=== PATIENT | female | born 1995 | race Two or more races ===

== ENCOUNTER 2020-05-10 16:03 | Emergency (ER) | payer MEDICAID ==
[~2020-05-10] VITALS: Ht 162.6 cm; Wt 77.1 kg
--- NOTE | 2020-05-10 16:20 | NUR ---
Pt report about a week she got bite by a spider in her Lt leg and with the day Patient noted her left leg redness and progressively swollen.
[2020-05-10] MEDS ORDERED: cefTRIAXone 1 GM in NS 55 ML IVPB ONE (16:30)
[2020-05-10 16:50] VITALS: BP 106/76
[2020-05-10 16:56] LABS: ANION GAP 12 mmol/L (5-15); BLOOD UREA NITROGEN 8 mg/dL (7-18); CALCIUM 9.3 MG/DL (8.5-10.1); CARBON DIOXIDE 22 MMOL/L (21-32); CHLORIDE 105 MMOL/L (98-107); CREATININE 0.5 MG/DL (0.55-1.30); POTASSIUM 4.4 MMOL/L (3.5-5.1); SODIUM 138 MMOL/L (136-145)
[2020-05-10 17:01] LABS: ALANINE AMINOTRANSFERASE 31 U/L (12-78); ALBUMIN 2.1 G/DL (3.4-5.0); ALBUMIN/GLOBULIN RATIO 0.4 (1.0-2.7); ALKALINE PHOSPHATASE 260 U/L (46-116); ASPARTATE AMINO TRANSFERASE 31 U/L (15-37); BILIRUBIN,TOTAL 0.3 MG/DL (0.2-1.0)
--- NOTE | 2020-05-10 17:03 | Diagnostic Imaging Report ---
EXAM: XR Left Tibia and Fibula, 2 Views CLINICAL HISTORY: PAIN TECHNIQUE: Frontal and lateral views of the left tibia and fibula. COMPARISON: None FINDINGS: Bones/joints: No displaced fracture or dislocation identified. Joint space is maintained. No bony lesion. Soft tissues: Diffuse prominent soft tissue swelling. IMPRESSION: 1. No displaced fracture or dislocation identified. 2. Diffuse prominent soft tissue swelling. Cellulitis is not excluded.
[2020-05-10 17:16] LABS: BASOPHILS % (AUTO) 1.2 % (0.0-2.0); EOSINOPHILS % (AUTO) 1.9 % (0.0-3.0); HEMATOCRIT 34.2 % (37.0-47.0); HEMOGLOBIN 10.7 G/DL (12.0-16.0); MEAN CORPUSCULAR VOLUME 79 FL (80-99); MONOCYTES % (AUTO) 5.2 % (1.0-10.0); NEUTROPHILS % (AUTO) 69.7 % (45.0-75.0); PLATELET COUNT 474 K/UL (150-450); RED BLOOD COUNT 4.31 M/UL (4.20-5.40); RED CELL DISTRIBUTION WIDTH 13.8 % (11.6-14.8); WHITE BLOOD COUNT 9.5 K/UL (4.8-10.8)
[2020-05-10 17:19] LABS: APPEARANCE,URINE SLIGHTLY CLOUDY; BILIRUBIN, URINE NEGATIVE (NEGATIVE); COLOR,URINE PALE YELLOW; GLUCOSE, URINE (UA) NEGATIVE (NEGATIVE); KETONES,URINE 1+ (NEGATIVE); LEUKOCYTE ESTERASE ,URINE 3+ (NEGATIVE); NITRITE,URINE NEGATIVE (NEGATIVE); PH,URINE 6.5 (4.5-8.0); PROTEIN,URINE 1+ (NEGATIVE); UROBILINOGEN,URINE 1 MG/DL (0.0-1.0)
--- NOTE | 2020-05-10 17:32 | Emergency Room Report ---
History of Present Illness General Chief Complaint: Skin Rash/Abscess Source: Patient Present Illness HPI 24-year-old female with no signal past medical history here complaining of left lower leg pain x3 days after a spider bite. Patient reports that she was outside and she felt a bite through her pants. Patient was able to see the spider. Denies any fever and chills. Obvious swelling noted left lower ext remity warm to touch. Patient is neurovascularly intact. Has full range of motion of the affected side. Rates the pain 7 out of 10 without radiation. Denies tingling or numbness. Has not taken medication for symptom relief. Patient reports her last menstrual period was April 14, 2020 however does not know if she is or not. Is up-to-date with tetanus shot. Patient also mentioned that her last menstrual period was April 14, 2020 however she might be . Denies any abdominal pain, nausea vomiting, vaginal bleeding or spotting. 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 COVID-19 Screening: Negative COVID-19 COVID-19 Testing Source: [employer] Patient History Past Medical History: see triage record Past Surgical History: none Pertinent Family History: none Last Menstrual Period: 04/14/20 Now: No Immunizations: UTD Reviewed Nursing Documentation: PMH: Agreed; PSxH: Agreed Nursing Documentation-PMH Past Medical History: No Stated History Review of Systems All Other Systems: negative except mentioned in HPI Physical Exam Vital Signs Date Time Temp Pulse Resp B/P (MAP) Pulse Ox O2 Delivery O2 Flow Rate FiO2 05/10/20 16:10 98.1 110 16 103/52 (69) 96 Room Air Sp02 EP Interpretation: reviewed, normal General Appearance: no apparent distress, alert, GCS 15, non-toxic Head: normocephalic, atraumatic Eyes: bilateral eye normal inspection, bilateral eye PERRL ENT: no angioedema Neck: full range of motion, supple Respiratory: no rhonchi, no retraction, no accessory muscle use Cardiovascular #2: 2+ dorsalis pedis (R), 2+ dorsalis pedis (L) Gastrointestinal: soft Rectal: deferred Musculoskeletal: back normal, no calf tenderness, swelling - left tib fib and foot with infected wounds Neurologic: alert, motor strength/tone normal, oriented x3, sensory intact, responsive, speech normal Psychiatric: judgement/insight normal, memory normal, mood/affect normal, no suicidal/homicidal ideation Skin: other - infecterd wounds left lower leg, no ulceration , appears to be trackmarks Lymphatic: no adenopathy Medical Decision Making PA Attestation All diagnosis and treatment plans were discussed and reviewed by my supervising physician Dr. Escobar Diagnostic Impression: Primary Impression: Cellulitis, leg Additional Impression: confirmed by positive urine test ER Course 24-year-old female with no signal past medical history here complaining of left lower leg pain x3 days after a spider bite. Patient reports that she was outside and she felt a bite through her pants. Patient was able to see the spider. Denies any fever and chills. Obvious swelling noted left lower extremity warm to touch. Patient is neurovascularly intact. Has full range of motion of the affected side. Rates the pain 7 out of 10 without radiation. Denies tingling or numbness. Has not taken medication for symptom relief. Patient reports her last menstrual period was April 14, 2020 however does not know if she is or not. Is up-to-date with tetanus shot. Patient also mentioned that her last menstrual period was April 14, 2020 however she might be . Denies any abdominal pain, nausea vomiting, vaginal bleeding or spotting. Patient reports that she is G4, P4 Ddx considered but are not limited to : Cellulitis, DVT, superficial infection, abscess Vital signs: are WNL, pt. is afebrile H&PE are most consistent with: Cellulitis left leg, positive test via urine ORDERS: CBC, CMP, lactic acid, UA, urine test, Keflex, vitamins, Tylenol ED INTERVENTIONS: Rocephin IV DISCHARGE: At this time pt. is stable for d/c to home. Will provide printed patient care instructions, and any necessary prescriptions. Care plan and follow up instructions have been discussed with the patient prior to discharge. Upon discharge patient requested stronger pain medication indicating" I am going to abort this and I need stronger pain medication" I explained to the patient that patient is to follow-up with [facility] start vitamin strong pain medication or any NSAIDs cannot be prescribed at this time due to patient status. Advised patient return to emergency room worsening symptoms. Patient was also provided with crutches to ambulate. Patient was provided with a list of dental clinics to follow-up with Other X-Ray Diagnostic Results Other X-Ray Diagnostic Results : X-Ray ordered: Left tib-fib # of Views/Limited Vs Complete: 2 View Indication: Pain EP Interpretation: Yes PA Xray: Interpretation reviewed, by supervising MD, and agrees with findings. Interpretation: no dislocation, no soft tissue swelling, no fractures, other - No osteomyelitis noted Impression: No acute disease Electronically Signed by: Roderick Sauceda PA-C Last Vital Signs Date Time Temp Pulse Resp B/P (MAP) Pulse Ox O2 Delivery O2 Flow Rate FiO2 05/10/20 16:50 98.1 100 16 106/76 100 Room Air Disposition: HOME, SELF-CARE Condition: Stable Scripts Acetaminophen* (TYLENOL EXTRA STRENGTH*) 500 Mg Tablet 500 MG ORAL Q6H PRN for Mild Pain/Temp > 100.5, #30 TAB 0 Refills Prov: Roderick Austin 05/10/20 No.137/Iron/Folic Acd ( Vitamin Tablet) 1 Each Tablet 1 EACH PO DAILY, #30 TAB Prov: Roderick Austin 05/10/20 Cephalexin* (KEFLEX*) 500 Mg Capsule 500 MG ORAL EVERY 6 HOURS for 7 Days, #28 CAP Prov: Roderick Austin 05/10/20 Referrals: [facility],REFERRING (PCP) Patient Instructions: Cellulitis, [id number] Additional Instructions: Take medication as directed, follow-up with [facility] in 48 hours, if worsening symptoms return to the emergency room. Avoid taking ibuprofen, Advil, Motrin. Avoid all NSAIDs Roderick Austin May 10, 2020 17:32
[2020-05-10] MEDS ORDERED: PRENATAL VITAM1 EA10 PO (18:24)
[2020-05-10] MEDS ORDERED: CEPHALEXIN500 MG ORAL (18:24)
[2020-05-10] MEDS ORDERED: TYLENOL EXTRA500 MG ORAL (18:24)
[2020-05-10 18:35] VITALS: BP 116/62
== END 2020-05-10 18:49 | disposition home or self-care (01) ==
LOC: EMR 16:27
DX: L03.116 Cellulitis of left lower limb (principal); Z33.1 Pregnant state, incidental
CPT/HCPCS: 36415; 73590; 80053; 81003; 81025; 83605; 85025; 87086; 96365; J0696; Z7502; 99284